=== PATIENT | female | born 2000 | race Two or more races ===

== ENCOUNTER 2019-10-27 09:35 | Emergency (ER) | payer MEDICAID, OTHER ==
[~2019-10-27] VITALS: Ht 157.5 cm; Wt 54.4 kg
[2019-10-27 12:50] VITALS: BP 102/56
== END 2019-10-27 12:59 | disposition home or self-care (01) ==
LOC: ER 09:35
DX: N93.8 Other specified abnormal uterine and vaginal bleeding (principal); N92.0 Excessive and frequent menstruation with regular cycle; Z32.02 Encounter for pregnancy test, result negative
CPT/HCPCS: 36415; 81025; 84702